=== PATIENT | male | born 1970 | race Caucasian/White ===

== ENCOUNTER 2020-12-27 11:36 | Emergency (ER) | payer OTHER, SELFPAY ==
[2020-12-27 11:38] VITALS: BP 154/88; PULSE 97; RESP 22; TEMP 35.7; O2SAT 98; BMI 26.6
[2020-12-27 11:47] VITALS: BP 150/96; PULSE 91; RESP 26; O2SAT 100
--- NOTE | 2020-12-27 11:58 | EKG12_ITS ---
Test Reason : CP Blood Pressure : / mmHG Vent. Rate : 093 BPM Atrial Rate : 093 BPM P-R Int : 176 ms QRS Dur : 100 ms QT Int : 420 ms P-R-T Axes : 074 079 053 degrees QTc Int : 522 ms Normal sinus rhythm Prolonged QT Abnormal ECG Confirmed by DENNISE MORAES, COLEMAN ([id number]), make up editor MICHELLE UMANA ([id number]) on 12/30/2020 12:33:26 PM Referred By: NO Confirmed By:COLEMAN BOWDEN MD
--- NOTE | 2020-12-27 11:59 | ED.VISSUMM ---
- ER Visit Summary Date of Service: 12/27/20 Chief Complaint: [Syncope] History of Present Illness: The patient is a 50 M [presents to the emergency department with a syncopal episode this morning. 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 Patient was taking another individual home when he started feeling numb and tingly over his entire body. Patient started feeling hot. Patient got out of the vehicle and then apparently collapsed. He does not think he lost consciousness. Patient did have emesis x3-4 times. Patient currently complains of feeling like his whole body is numb and tingly. Patient has not had symptoms like this before. Patient does drink alcohol frequently. Normally he states that he drinks 2-3 beers a night but had over 12 beers last evening. He denies any illicit drug use. Patient has history of hypertension and hypothyroidism. He denies recent illness otherwise.] Physical Examination: [HEENT-PERRLA, EOMI. Cranial nerves II through XII grossly intact. TMs clear. Mucous membranes moist. No adenopathy. Cardiovascular-regular rate and rhythm without murmur or ectopy Lungs-clear to auscultation, chest wall stable without crepitus or subcu emphysema, patient tachypneic and slightly anxious appearing. Abdomen-normoactive bowel sounds, soft, nontender, no rebound or rigidity, no peritoneal signs. Extremities-intact ?4, normal range of motion, normal pulses, atraumatic] Test Results: [EKG obtained on arrival shows sinus rhythm with a ventricular rate of 93 bpm with slightly prolonged QT of 420. CBC with differential obtained showed a white count of 6.7, hemoglobin 16.7, hematocrit 46, platelet 232. Chemistries unremarkable other than a slightly depressed potassium of 2.7. CO2 was 19. Glucose 173, BUN 14, creatinine 1.34. Troponin is less than 0.015.] Emergency Department Course and Treatment: [IV line established on arrival. Patient placed on a threat monitoring analyst. Patient received Ativan 1 mg IV.] Patient's symptoms essentially resolved after treatment with Ativan. Patient received 40 mEq of potassium chloride p.o. Treatment Plan: [Discussed results with patient and at this point he would prefer to follow-up as an outpatient with his primary care physician. Patient does not want to be admitted for alcohol detox. I suspect he may have had a vasovagal reaction. Suspect anxiety as a possible cause as well as he was tachypneic with diffuse paresthesias and appeared to be hyperventilating.] Patient will follow up with his primary care physician in 5 days as he already has an established appointment. He is advised to have his potassium rechecked at that time. Disposition: [Discharged home in stable condition] Impression: [Near syncope Anxiety Hypokalemia] This note was generated with [email or web address] dictation software. It may contain incorrect words, spelling, and punctuation that were not noted in review of the chart prior to signing ED Disposition - Plan for ED Patient: Referrals: NOT,DEFINED [NON-STAFF] -
[2020-12-27 12:06] LABS: Absolute Lymphocyte Count 2.26 X10^3/uL (0.83-4.51); Absolute Neutrophil Count 3.6 X10^3/uL (2.0-7.7); Basophil# 0.05 X10^3/uL; Basophil% 0.7 % (0-1); Eosinophil# 0.08 X10^3/uL; Eosinophils% 1.2 % (0-5); Hematocrit 45.9 % (40-54); Hemoglobin 16.7 g/dL (13.0-16.5); Lymphocyte # 2.26 X10^3/ul (4.0); Lymphocyte % 33.7 % (19-41); Mean Corp Hgb Conc 36.4 g/dL (32-36); Mean Corpuscular Hgb 33.3 pg (27.0-32.0); Mean Corpuscular Volume 91.6 fL (80-94); Mean Platelet Vol. 9.8 fl (6.2-12.0); Monocyte# 0.68 X10^3/uL; Monocyte% 10.1 % (0-10); NRBC Flagged by Analyzer 0 % (0-5); Neutrophil # 3.61 X10^3/uL (2.7-7.7); Platelet Count 232 K/mm3 (150-450); RBC Distribution Width CV 12.4 % (11.6-14.6); RBC Distribution Width SD 41.4 fl (35.1-43.9); Red Blood Count 5.01 M/mm3 (4.6-6.2); White Blood Count 6.7 K/mm3 (4.4-11.0)
[2020-12-27] MEDS: Ondansetron 4 MG/2 ML Vial IV (12:08)
[2020-12-27] MEDS: LORazepam 2 MG/ML Syringe 1 MG IV (12:08)
[2020-12-27] MEDS: 0.9% Normal Saline 1,000 ML 1000 ML IV (12:08)
[2020-12-27 12:18] LABS: Magnesium 2.2 mg/dL (1.6-2.6)
[2020-12-27 12:29] LABS: Alcohol, Blood (Medical)-Serum < 3.0 mg/dL
[2020-12-27 12:31] LABS: AST(SGOT) 25 U/L (15-37); Alanine Aminotransfer ALT/SGPT 31 U/L (16-61); Albumin, Serum 4.2 g/dL (3.2-5.0); Alkaline Phosphatase 114 U/L (45-117); Anion Gap 18 (5-15); BUN 14 mg/dL (7-18); BUN/Creat Ratio 10.4 RATIO (10-20); Calcium,Total 9.5 mg/dL (8.5-10.1); Chloride 100 mmol/L (98-107); Creatinine, Serum 1.34 mg/dL (0.70-1.30); EST Glomerular Filtration Rate 59 mL/min (>60); Est Glom Filt Rate - Afr Amer 72 mL/min (>60); Estimated Creatinine Clearance 64.49 ml/min; Globulin 4.3 g/dL (2.2-4.2); Glucose 173 mg/dL (74-106); Lipase 100 U/L (73-393); Potassium 2.7 mmol/L (3.5-5.1); Protein, Total 8.5 g/dL (6.4-8.2); Sodium Level 137 mmol/L (136-145)
[2020-12-27 12:33] VITALS: BP 142/103; BP 144/97; BP 147/87; PULSE 63; PULSE 76; PULSE 78
[2020-12-27] MEDS: Potassium Chloride Oral Tablet 20 MEQ 40 MEQ PO (12:42)
[2020-12-27 13:28] VITALS: BP 134/96; PULSE 69; RESP 13; O2SAT 100
--- NOTE | 2020-12-27 13:48 | ED.DEP ---
ED Disposition - Plan for ED Patient: Instructions: ED Fainting, Uncertain Cause, ED Fainting, Vagal Reaction, ED Hyperventilation Syndrome, ED Hypokalemia Referrals: NOT,DEFINED [NON-STAFF] - 3-5 Days
[2020-12-27 13:51] VITALS: BP 156/95; PULSE 70; RESP 14; O2SAT 100
== END 2020-12-27 13:55 | disposition home or self-care (01) ==
PROVIDERS: Emergency Provider Emergency Medicine; PCP Physician Assistant Medical
DX: R55 Syncope and collapse (principal); F41.9 Anxiety disorder, unspecified; E87.6 Hypokalemia; E03.9 Hypothyroidism, unspecified; I10 Essential (primary) hypertension
CPT/HCPCS: 80053; 82077; 83690; 83735; 84484; 85025; 93005; 96374; 96375; 99285; J7030; A4216; J2405